=== PATIENT | female | born 1980 | race Caucasian/White ===

== ENCOUNTER 2018-01-13 10:34 | Emergency (ER) | payer OTHER ==
[2018-01-13] MEDS ORDERED: methylPREDNISolone SOD SUCCI 125 MG/2 ML VIAL IM ONE (11:41)
[2018-01-13] MEDS ORDERED: KETOROLAC 60 MG/2 ML VIAL IM STA (11:41)
--- NOTE | 2018-01-13 11:46 | ED ---
General Adult HPI - General Chief complaint: Extremity Injury, Lower Stated complaint: Hand pain Time Seen by Provider: 01/13/18 11:25 Source: patient, RN notes reviewed Mode of arrival: ambulatory Limitations: no limitations - History of Present Illness Initial comments: This is a 37-year-old female who states she has carpal tunnel syndrome more so on the right side than the left side from working at [employer] for a half years. She states over last 4 or 5 days she's had increased pain this at times gets as severe as 10/10 currently is 8/10 she states it goes into her wrist and fingers and doesn't ascend up to her elbow area. She denies any other complaints no chest pain shortness of breath loss of function to her upper or lower extremities just the pain with movement. She denies any recent trauma she states she is a nonsmoker. She states she's tried Tylenol and Motrin at home without relief she has not seen a hand surgeon. No other complaints - Related Data Previous Rx's Medication Instructions Recorded Ketorolac [Toradol] 10 mg PO Q6HR #20 tab 01/13/18 predniSONE 20 mg PO BID #10 tab 01/13/18 Allergies Allergy/AdvReac Type Severity Reaction Status Date / Time adhesive tape AdvReac Rash/Hives Verified 01/13/18 11:18 milk AdvReac Abdominal Verified 01/13/18 11:18 Pain Review of Systems ROS Statement: Those systems with pertinent positive or pertinent negative responses have been documented in the HPI. ROS Other: All systems not noted in ROS Statement are negative. Past Medical History Past Medical History: Seizure Disorder Additional Past Medical History / Comment(s): Anxiety, asthma, illicit drug use , pyelonephritis. History of Any Multi-Drug Resistant Organisms: MRSA Date of last positivie culture/infection: 10/16/16 MDRO Source:: THIGH Past Surgical History: No Surgical Hx Reported Additional Past Surgical History / Comment(s): [place] teeth extraction Past Anesthesia/Blood Transfusion Reactions: No Reported Reaction Past Psychological History: Anxiety, Depression Smoking Status: Never smoker Past Alcohol Use History: None Reported Past Drug Use History: Cocaine, Marijuana - Past Family History Father History Unknown: Yes Family Medical History: No Reported History General Exam - General Exam Comments Initial Comments: This is a well-developed well-nourished awake alert oriented 3 female Limitations: no limitations General appearance: alert, anxious Head exam: Present: atraumatic, normocephalic, normal inspection Eye exam: Present: normal appearance, PERRL, EOMI. Absent: scleral icterus, conjunctival injection, periorbital swelling Neck exam: Present: normal inspection. Absent: tenderness, meningismus, lymphadenopathy Respiratory exam: Present: normal lung sounds bilaterally. Absent: respiratory distress, wheezes, rales, rhonchi, stridor Cardiovascular Exam: Present: regular rate, normal rhythm, normal heart sounds. Absent: systolic murmur, diastolic murmur, rubs, gallop, clicks Extremities exam: Present: normal inspection, full ROM, tenderness, normal capillary refill, other (Some tenderness palpation of the median nerves to percussion bilaterally pulses are equal with respect to the radial pulses bilaterally. No tenderness palpation of the triceps biceps or forearm bilaterally integrity engineer strength is equal bilaterally.) Back exam: Present: full ROM Psychiatric exam: Present: anxious Skin exam: Present: warm, dry, intact, normal color. Absent: rash Course Vital Signs 01/13/18 11:04 Temperature 97.8 F Pulse Rate 81 Respiratory 18 Rate Blood Pressure 100/65 O2 Sat by Pulse 98 Oximetry Medical Decision Making - Medical Decision Making The presentation is consistent with an exacerbation of her carpal tunnel syndrome. She will follow-up with her doctor for further treatment or referral. Disposition Clinical Impression: Carpal tunnel syndrome on both sides Disposition: HOME SELF-CARE Condition: Good Instructions: Paresthesia (ED), Arthralgia (ED) Prescriptions: Ketorolac [Toradol] 10 mg PO Q6HR #20 tab predniSONE 20 mg PO BID #10 tab Referrals: Ced Pulido MD [Primary Care Provider] - 1-2 days
[2018-01-13 12:24] VITALS: BP 110/67; PULSE 64; RESP 20; TEMP 98.3
== END 2018-01-13 12:27 | disposition home or self-care (01) ==
LOC: EC 10:34
DX: G56.03 Carpal tunnel syndrome, bilateral upper limbs (principal); Z86.14 Personal history of Methicillin resistant Staphylococcus aureus infection; Z91.011 Allergy to milk products; Z91.048 Other nonmedicinal substance allergy status
CPT/HCPCS: 99283; 96372 ×2; J2930; J1885

== ENCOUNTER 2021-09-07 12:48 | Inpatient (IN) | payer OTHER ==
[2021-09-07] MEDS ORDERED: LACTATED RINGERS 1,000 ML IV ONE (13:11)
[2021-09-07] MEDS ORDERED: CITRIC ACID-SODIUM CITRATE 15 ML CUP PO ONE (13:11)
[2021-09-07] MEDS ORDERED: LACTATED RINGERS 1,000 ML IV SCH (13:15)
[2021-09-07 13:28] LABS: Basophils % (A) 0 %; Eosinophils # (A) 0.1 k/uL (0-0.7); Eosinophils % (A) 1 %; HCT 44.2 % (34.0-46.0); HGB 14.5 gm/dL (11.4-16.0); Lymphocytes # (A) 1.1 k/uL (1.0-4.8); Lymphocytes % (A) 6 %; MCH 31.8 pg (25.0-35.0); MCHC 32.8 g/dL (31.0-37.0); MCV 96.9 fL (80.0-100.0); Monocytes # (A) 0.4 k/uL (0-1.0); Monocytes % (A) 3 %; Neutrophils # (A) 14.9 k/uL (1.3-7.7); Neutrophils % (A) 90 %; Platelet Count 249 k/uL (150-450); RBC 4.56 m/uL (3.80-5.40); RDW 13.4 % (11.5-15.5); WBC 16.7 k/uL (3.8-10.6)
[2021-09-07] MEDS ORDERED: KETOROLAC 15 MG/ML 1 ML VIAL ONE (13:41)
[2021-09-07] MEDS ORDERED: HYDROmorphone (PF) 10 MG/ML VIAL ONE (13:41)
[2021-09-07] MEDS ORDERED: DEXAMETHASONE SOD PHOSPHATE 4 MG/ML 1 ML VIAL ONE (13:41)
[2021-09-07] MEDS ORDERED: ePHEDrine SULFATE/0.9% NACL/PF 50 MG/5 ML SYRINGE IV ONE (13:41)
[2021-09-07] MEDS ORDERED: SUCCINYLCHOLINE CHLORIDE VIAL 200 MG/10 ML VIAL IV ONE (13:41)
[2021-09-07] MEDS ORDERED: ONDANSETRON 4 MG/2 ML VIAL ONE (13:41)
[2021-09-07] MEDS ORDERED: PROPOFOL 10 MG/ML 20 ML VIAL IV ONE (13:41)
[2021-09-07] MEDS ORDERED: fentaNYL (PF) 50 MCG/ML 2 ML AMP ONE (13:41)
[2021-09-07 14:00] LABS: Amorphous Sediment,Urine Occasional /hpf; Appearance,Urine Cloudy (Clear); Bacteria,Urine Rare /hpf; Bilirubin,Urine Negative (Negative); Blood,Urine Moderate (Negative); Color,Urine Yellow; Glucose,Urine (UA) Negative (Negative); Ketones,Urine 3+ (Negative); Leukocyte Esterase,Urine Trace (Negative); Mucus,Urine Occasional /hpf; Nitrite,Urine Negative (Negative); Protein,Urine 1+ (Negative); RBC,Urine 16 /hpf (0-5); Specific Gravity,Urine 1.018 (1.001-1.035); Squamous Epithelial Cell,Urine 12 /hpf (0-4); Urobilinogen,Urine <2.0 mg/dL (<2.0); WBC,Urine 4 /hpf (0-5)
[2021-09-07] MEDS ORDERED: ZOLPIDEM 5 MG TAB PO PRN (14:40)
[2021-09-07] MEDS ORDERED: diphenhydrAMINE 25 MG CAP PO PRN (14:40)
[2021-09-07] MEDS ORDERED: NALOXONE 0.4 MG/ML 1 ML VIAL IV PRN (14:40)
[2021-09-07] MEDS ORDERED: diphenhydrAMINE 50 MG/ML 1 ML VIAL IVP PRN ×2 (14:40)
[2021-09-07] MEDS ORDERED: SIMETHICONE 80 MG CHEWABLE PO PRN (14:40)
[2021-09-07] MEDS ORDERED: ONDANSETRON 4 MG/2 ML VIAL IVP PRN (14:40)
[2021-09-07] MEDS ORDERED: METOCLOPRAMIDE 5 MG/ML 2 ML VIAL IVP PRN (14:40)
[2021-09-07] MEDS ORDERED: OXYTOCIN 30 UNITS/500 ML NS 30 UNIT in SALINE 1 500ML.BAG IV SCH (14:45)
[2021-09-07 14:48] LABS: Amphetamine Screen,Urine Not Detected (NotDetected); Barbiturate Screen,Urine Not Detected (NotDetected); Benzodiazepines Screen,Urine Not Detected (NotDetected); Cocaine Screen,Urine Detected (NotDetected); Methadone Screen, Urine Not Detected (NotDetected); Opiate Screen,Urine Not Detected (NotDetected); Oxycodone Screen, Urine Not Detected (NotDetected); Phencyclidine Screen,Urine Not Detected (NotDetected); Tricyclic Antidepressant,Urine Not Detected (NotDetected); Urn Cannabinoid Scrn Detected (NotDetected)
--- NOTE | 2021-09-07 14:49 | P.HPOB ---
History of Present Illness H&P Date: 09/07/21 Chief Complaint: Labor This is a 41-year-old 2 para 1 woman who presents on in spontaneous active labor. She states she has a due date of 09/26/2021 making her approx imately 37-2/7 weeks' gestation. She gives a history of a previous low transverse section. When she arrived in labor and delivery she has actively mary is inconsolable and in significant pain. Ripening and thrashing in the bed. Initial evaluation by the RN she was her cervix to 3 to be 4 cm dilated with intact membranes. We will she is being admitted and IV started she has spontaneous rupture of membranes. Upon my initial evaluation she is 8 cm dilated and 100% effaced. She is counseled regarding vaginal after section versus repeat . Patient adamantly refuses trial of labor and insists upon section. Secondary to the unknown nature of her past medical history is wisest to proceed and expeditious fashion to primary low transverse section. Anesthesia is notified. heart tones are category 1. She is mary every 1-2 minutes spontaneously. Past Medical History Past Medical History: Seizure Disorder Additional Past Medical History / Comment(s): Anxiety, asthma, illicit drug use, pyelonephritis. History of Any Multi-Drug Resistant Organisms: MRSA Date of last positivie culture/infection: 10/16/16 MDRO Source:: THIGH Past Surgical History: No Surgical Hx Reported Additional Past Surgical History / Comment(s): [place] teeth extraction Past Anesthesia/Blood Transfusion Reactions: No Reported Reaction Smoking Status: Smoker, current status unknown - Past Family History Father History Unknown: Yes Family Medical History: No Reported History Medications and Allergies Home Medications Medication Instructions Recorded Confirmed Type Cephalexin [Keflex] 500 mg PO Q4HR 09/07/21 09/07/21 History Pnv No.95/Ferrous Fum/Folic AC 1 tab PO DAILY 09/07/21 09/07/21 History [ Multivitamin Tablet] Allergies Allergy/AdvReac Type Severity Reaction Status Date / Time adhesive tape AdvReac Rash/Hives Verified 09/07/21 13:09 milk AdvReac Abdominal Verified 09/07/21 13:09 Pain Exam Intake and Output 09/06/21 09/07/21 09/07/21 22:59 06:59 14:59 Other: Weight 67.132 kg Limited physical exam is performed. This is a visibly gravid actively laboring and inconsolable female who appears her stated age. The abdomen is very firm and gravid with fundal height that appears smaller than stated gestational age. Pelvic examination she is 8+ centimeters dilated and 100% effaced vertex in the 0 station. Patient does not tolerate exam well. Results Result Diagrams: 09/07/21 13:15 Abnormal Lab Results - Last 24 Hours (Table) 09/07/21 Range/Units 13:15 WBC 16.7 H (3.8-10.6) k/uL Neutrophils # 14.9 H (1.3-7.7) k/uL Assessment and Plan (1) Active labor at term Current Visit: No Status: Acute Code(s): MDB8903 - SNOMED Code(s): 21548053 (2) Advanced maternal age (AMA) in Current Visit: Yes Status: Acute Code(s): JSZ8813 - SNOMED Code(s): 539963524 (3) Spontaneous onset of labor Current Visit: Yes Status: Acute Code(s): QQW2437 - SNOMED Code(s): 56745961 (4) Spontaneous rupture of membranes Current Visit: Yes Status: Acute Code(s): GBJ8532 - SNOMED Code(s): 259409078 (5) History of Current Visit: Yes Status: Acute Code(s): Z98.891 - HISTORY OF UTERINE SCAR FROM PREVIOUS SURGERY SNOMED Code(s): 769915917 (6) Insufficient care Current Visit: Yes Status: Acute Code(s): O09.30 - SUPRVSN OF PREG W INSUFFICIENT ANTENAT CARE, UNSP TRIMESTER SNOMED Code(s): 7310575160645 Plan: Anesthesia team and or notified. She be taken for emergent repeat low transverse section. Labs are pending. Patient's counseled regarding risks of include bleeding, infection, transfusion, injury to the infan t and or maternal internal structures. Consent is obtained.
--- NOTE | 2021-09-07 14:56 | P.OP ---
Date of Procedure: 09/07/21 Preoperative Diagnosis: Intrauterine at 30 and 60 2/7 weeks' gestation Insufficient care History of previous low transverse section Advanced active labor Advanced maternal age Possible recent maternal drug abuse Postoperative Diagnosis: Same Procedure(s) Performed: Repeat low transverse section Anesthesia: JONY Surgeon: Jamilah Mccormack Litigation Paralegal #1: Melia Frank Estimated Blood Loss (ml): 250 IV fluids (ml): 1,000 Urine output (ml): 100 Pathology: other (Placenta) Condition: stable Disposition: floor Indications for Procedure: History of previous low transverse section in advanced active labor. Operative Findings: Male infant in the vertex presentation with Apgars of 8 at 1 minute and 8 at 5 minutes weighing 2700 g, 5 lbs. 12 oz. Intact, three-vessel cord placenta. Clear amniotic fluid. Normal-appearing bilateral fallopian tubes and ovaries. Description of Procedure: After the patient was seen and assessed in the operating room and consent was obtained, she was taken to the operating room where general anesthetic was administered without incident. Appropriate timeout procedure had been undertaken. After anesthetic was adequate a low transverse skin incision was made following the pre-existing scar. This was carried down to the underlying fascia sharply. Fascia was incised in the midline and extended bilaterally with the Barr scissors. The inferior and superior aspect the fascial incision were elevated and the underlying rectus muscles dissected off sharply. Rectus muscles were bluntly in the midline and the peritoneum was entered bluntly. Peritoneal incision was extended bilaterally bluntly. Bladder blade was placed. Vesicouterine peritoneum was identified, tented up and entered sharply. The bladder flap was created sharply. Low transverse uterine incision was then made and extended bilaterally bluntly. Clear fluid was noted. The 's head was delivered out of the incision from the occiput anterior position. Nose and mouth were bulb suctioned. The resting. Delivered onto the field. The cord was clamped and cut and the infant was taken to the warmer. Cord blood was obtained as well as a segment for cord blood gases. The placenta was then delivered intact without difficulty. The uterus was exteriorized and cleared of all clot and debris. Uterine incision was delineated with Marcus's and closed in a running locked fashion with 0 Vicryl suture followed by second imbricating layer of the same. Additional [id number] suture was placed for hemostasis to the right of the midline and the incision. The gutters were cleared of all clot and debris and the uterus was returned to the abdomen. The incision was reinspected and noted to be hemostatic. The fascial edges rectus muscles and peritoneal edges were inspected and Bovie electrocautery was utilized were necessary for hemostasis. The fascia was then closed in a running fashion with 0 Vicryl suture. The subcuticular tissues reapproximated with 3-0 chromic suture and the skin was then closed using linnette. All counts reported to me as correct by the operating room staff and the patient was awoken from anesthetic without incident and transported to recovery.
[2021-09-07] MEDS: ACETAMINOPHEN IV (For NPO) 1,000 MG in EMPTY BAG 1 BAG IVPB SCH ×2 (15:05→23:20)
[2021-09-07] MEDS: LACTATED RINGERS 1,000 ML IV SCH ×2 (15:48→23:11)
[2021-09-07] MEDS: HYDROmorphone 1 MG/ML 1 ML SYRINGE IVP PRN ×2 (16:04→20:24)
[2021-09-07] MEDS: diphenhydrAMINE 50 MG CAP PO PRN (18:33)
[2021-09-07] MEDS: SENNOSIDES-DOCUSATE SODIUM 1 EACH TAB PO SCH (18:33)
[2021-09-07] MEDS: IBUPROFEN IV 800 MG in SODIUM CHLORIDE 0.9% 250 ML IV SCH (19:10)
[2021-09-07] MEDS: IBUPROFEN 600 MG TAB PO SCH (20:03)
[2021-09-07] MEDS ORDERED: ACETAMINOPHEN IV (For NPO) 1,000 MG in EMPTY BAG 1 BAG IVPB SCH (23:30)
[2021-09-08] MEDS: IBUPROFEN 600 MG TAB PO SCH ×4 (02:02→19:50)
[2021-09-08] MEDS: IBUPROFEN IV 800 MG in SODIUM CHLORIDE 0.9% 250 ML IV SCH (02:39)
[2021-09-08 04:08] LABS: Hepatitis B Surface Antigen Nonreactive (Nonreactive)
[2021-09-08] MEDS: ACETAMINOPHEN TAB 500 MG TAB PO SCH (05:16)
--- NOTE | 2021-09-08 05:56 | P.PNOBGPC ---
Subjective - Subjective Principal diagnosis: Postop day 1 Interval history: Comfortable overnight. IV access loss and patient declined replacement. This tolerating clear diet and oral pain medications well. Patient reports: Reports appetite normal, Reports voiding normally, Reports pain well controlled, Reports ambulating normally, Denies dizzy ambulation, Denies nauseated [place]: doing well, in NICU Objective - Vital Signs Latest vital signs: Vital Signs Temp Pulse Resp BP Pulse Ox 09/08/21 04:30 98.3 F 74 14 113/69 97 09/07/21 23:55 98.4 F 61 16 116/66 98 09/07/21 20:00 97.8 F 99 16 115/61 97 09/07/21 16:30 98.8 F 80 16 98/70 09/07/21 16:00 61 16 103/69 100 09/07/21 15:30 99 16 108/63 99 09/07/21 15:15 52 L 16 110/72 100 09/07/21 15:00 66 16 111/63 09/07/21 14:45 68 16 117/57 98 09/07/21 14:30 96.8 F L 70 16 125/74 99 09/07/21 13:21 96.6 F L 56 L 16 138/88 09/07/21 13:16 96.6 F L 56 L 18 138/88 Intake and Output 09/07/21 09/07/21 09/08/21 14:59 22:59 06:59 Output Total 1300 550 Balance -1300 -550 Output: Urine 1100 550 Uretheral (Johnson) 175 Estimated Blood Loss 200 Other: # Voids 1 Weight 67.132 kg - Exam Extremities: Present: normal Abdomen: Present: normal appearance, soft, distention (Mild), tenderness Incision: Present: normal, dry, intact, dressed Uterus: Present: normal, firm - Labs Labs: Abnormal Lab Results - Last 24 Hours (Table) 09/07/21 09/07/21 09/07/21 Range/Units 13:15 13:15 13:15 WBC 16.7 H (3.8-10.6) k/uL Neutrophils # 14.9 H (1.3-7.7) k/uL Urine Appearance Cloudy H (Clear) Urine Protein 1+ H (Negative) Urine Ketones 3+ H (Negative) Urine Blood Moderate H (Negative) Ur Leukocyte Esterase Trace H (Negative) Urine RBC 16 H (0-5) /hpf Ur Squamous Epith Cells 12 H (0-4) /hpf Amorphous Sediment Occasional H (None) /hpf Urine Bacteria Rare H (None) /hpf Urine Mucus Occasional H (None) /hpf Urine Cocaine Screen Detected H (NotDetected) U Marijuana (THC) Screen Detected H (NotDetected) Rubella IgG Antibody 123.00 H (0.00-10.00) IU/mL Assessment and Plan (1) Active labor at term Current Visit: No Status: Acute Code(s): GYA3952 - SNOMED Code(s): 44729081 (2) Advanced maternal age (AMA) in Current Visit: Yes Status: Acute Code(s): VFR2072 - SNOMED Code(s): 053731063 (3) Spontaneous onset of labor Current Visit: Yes Status: Acute Code(s): EAH7289 - SNOMED Code(s): 844 57682 (4) Spontaneous rupture of membranes Current Visit: Yes Status: Acute Code(s): MDL7303 - SNOMED Code(s): 944238097 (5) History of Current Visit: Yes Status: Acute Code(s): Z98.891 - HISTORY OF UTERINE SCAR FROM PREVIOUS SURGERY SNOMED Code(s): 063365107 (6) Insufficient care Current Visit: Yes Status: Acute Code(s): O09.30 - SUPRVSN OF PREG W INSUFFICIENT ANTENAT CARE, UNSP TRIMESTER SNOMED Code(s): 4774897050596 Plan: Postop day 1 status post repeat low transverse section secondary to advanced active labor. She is recovering well. Urine tox screen returned positive for cocaine and marijuana. Infant is in the special care nursery. environmental services tech consult has been arranged. Advance diet this morning and remove dressing at 24 hours, shower. She was on antibiotics for a urinary tract infection and we will continue Keflex at this time. She did receive 2 g of Ancef IV 2 before IV access was lost.
[2021-09-08 08:33] LABS: Basophils % (A) 0 %; Eosinophils % (A) 0 %; HCT 34.3 % (34.0-46.0); HGB 11.6 gm/dL (11.4-16.0); Lymphocytes # (A) 1.9 k/uL (1.0-4.8); Lymphocytes % (A) 11 %; MCHC 33.8 g/dL (31.0-37.0); MCV 97.5 fL (80.0-100.0); Mean Platelet Volume 8.4; Monocytes # (A) 0.8 k/uL (0-1.0); Monocytes % (A) 4 %; Neutrophils # (A) 14.3 k/uL (1.3-7.7); Neutrophils % (A) 83 %; Platelet Count 215 k/uL (150-450); RBC 3.51 m/uL (3.80-5.40); RDW 13.5 % (11.5-15.5); WBC 17.1 k/uL (3.8-10.6)
[2021-09-08] MEDS: CEPHALEXIN 500 MG CAP PO SCH ×2 (08:34→20:44)
[2021-09-08] MEDS: SENNOSIDES-DOCUSATE SODIUM 1 EACH TAB PO SCH ×2 (08:35→19:50)
[2021-09-08] MEDS: HYDROcodone/APAP 5-325MG 1 EACH TAB PO PRN ×3 (10:32→21:59)
[2021-09-08 10:34] LABS: HIV 2 AB Non-Reactive (Non-Reactive); HIV AB P24 Non-Reactive (Non-Reactive); HIV P24 AG Non-Reactive (Non-Reactive)
[2021-09-08] MEDS: diphenhydrAMINE 50 MG CAP PO PRN ×2 (14:44→19:50)
[2021-09-08] MEDS ORDERED: LORazepam 1 MG TAB PO STA (19:41)
[2021-09-08] MEDS ORDERED: THIAMINE 100 MG/ML 2 ML VIAL IM STA (20:00)
[2021-09-08] MEDS ORDERED: LORazepam 2 MG/ML INJ IV PRN ×3 (20:00)
[2021-09-09] MEDS: HYDROcodone/APAP 5-325MG 1 EACH TAB PO PRN ×3 (07:52→20:47)
[2021-09-09] MEDS: SENNOSIDES-DOCUSATE SODIUM 1 EACH TAB PO SCH ×2 (07:58→20:44)
[2021-09-09] MEDS: CEPHALEXIN 500 MG CAP PO SCH ×2 (07:58→20:44)
[2021-09-09] MEDS: ACETAMINOPHEN TAB 500 MG TAB PO SCH ×4 (08:33→18:29)
[2021-09-09] MEDS: THIAMINE 100 MG TAB PO SCH ×2 (08:35→18:31)
[2021-09-09] MEDS: IBUPROFEN 600 MG TAB PO SCH ×3 (10:10→15:58)
[2021-09-09] MEDS ORDERED: LORazepam 0.5 MG TAB PO PRN (10:18)
--- NOTE | 2021-09-09 11:25 | P.PNOBGPC ---
Subjective - Subjective Interval history: The patient did begin to experience moderate symptoms of probable withdrawal from crack cocaine last evening which has been managed well with Ativan. Patient reports: Reports appetite normal, Reports voiding normally, Reports pain well controlled, Reports ambulating normally : doing well, in NICU (Being monitored for withdrawal symptoms.) Objective - Vital Signs Latest vital signs: Vital Signs Temp Pulse Resp BP Pulse Ox 09/09/21 08:00 98.1 F 66 18 122/76 97 09/08/21 20:00 98.5 F 71 16 119/73 09/08/21 14:27 98.1 F 73 18 108/65 96 09/08/21 12:00 98.7 F 61 18 112/74 99 Intake and Output 09/08/21 09/09/21 09/09/21 22:59 06:59 14:59 Intake Total 200 Balance 200 Intake: Oral 200 Other: # Voids 1 2 1 - Exam Extremities: Present: normal Abdomen: Present: normal appearance, soft. Absent: distention, tenderness Incision: Present: normal, dry, intact Uterus: Present: normal, firm (The uterine fundus is tonic inappropriately tender just below the umbilicus.) Assessment and Plan (1) Cocaine abuse Current Visit: No Status: Acute Code(s): F14.10 - COCAINE ABUSE, UNCOMPLICATED SNOMED Code(s): 47865411 Plan: The patient has been experiencing withdrawal symptoms from cocaine. My initial management with Ativan appears to be effective and consultation with internal medicine has agreed with that plan. She no longer has an IV in place and internal medicine has ordered IV Ativan as needed. I have changed this to oral Ativan 1 mg every 6 hours as needed. The patient did well with a single dose of Ativan last evening until this morning. She has requested to remain in the hospital longer secondary to ongoing incisional pain. I strongly encouraged her to evaluate the hallways routinely. She is otherwise performing all activities of daily living.
--- NOTE | 2021-09-09 13:20 | P.CONS ---
History of Present Illness - Reason for Consult Consult date: 09/09/21 - Chief Complaint Cocaine withdrawal - History of Present Illness 41-year-old female patient was admitted to the hospital with spontaneous labor; patient was found to be actively mary upon presentation; patient's was given option for repeat versus vaginal ; patient chose for a section and underwent surgery on 09/08/2021 Patient urine toxicology came back positive for cocaine and marijuana; postoperatively patient was very restless with concern for possible cocaine withdrawal; at the bedside patient reports he's been using cocaine for the past 10-15 years; patient further reports that her physicians are aware of her cocaine use At the time of evaluation patient is resting in bed appears calm and not withdrawing Labs completed yesterday revealed an elevated white blood count of 17.1; UA is positive and patient has been placed appropriately on IV antibiotics Review of Systems REVIEW OF SYSTEMS: CONSTITUTIONAL: Complains of pain at surgical site. HEENT: No recent visual problems or hearing problems. Denied any sore throat. CARDIOVASCULAR: No chest pain, orthopnea, PND, no palpitations, no syncope. PULMONARY: No shortness of breath, no cough, no hemoptysis. GASTROINTESTINAL: No diarrhea, no nausea, no vomiting, no abdominal pain. NEUROLOGICAL: No headaches, no weakness, no numbness. HEMATOLOGICAL: Denies any bleeding or petechiae. GENITOURINARY: Denies any burning micturition, frequency, or urgency. MUSCULOSKELETAL/RHEUMATOLOGICAL: Denies any joint pain, swelling, or any muscle pain. ENDOCRINE: Denies any polyuria or polydipsia. The rest of the 14-point review of systems is negative. Past Medical History Past Medical History: Seizure Disorder Additional Past Medical History / Comment(s): Anxiety, asthma, illicit drug use, pyelonephritis. History of Any Multi-Drug Resistant Organisms: MRSA Year Discovered:: 10/16/16 MDRO Source:: THIGH Past Surgical History: No Surgical Hx Reported Additional Past Surgical History / Comment(s): [place] teeth extraction Past Anesthesia/Blood Transfusion Reactions: No Reported Reaction Smoking Status: Smoker, current status unknown - Past Family History Father History Unknown: Yes Family Medical History: No Reported History Mother Additional Family Medical History / Comment(s): Stroke Medications and Allergies Home Medications Medication Instructions Recorded Confirmed Type Cephalexin [Keflex] 500 mg PO Q4HR 09/07/21 09/07/21 History Pnv No.95/Ferrous Fum/Folic AC 1 tab PO DAILY 09/07/21 09/07/21 History [ Multivitamin Tablet] Allergies Allergy/AdvReac Type Severity Reaction Status Date / Time adhesive tape AdvReac Rash/Hives Verified 09/07/21 13:09 milk AdvReac Abdominal Verified 09/07/21 13:09 Pain Physical Exam Vitals: Vital Signs Temp Pulse Resp BP Pulse Ox 09/09/21 08:00 98.1 F 66 18 122/76 97 09/08/21 20:00 98.5 F 71 16 119/73 09/08/21 14:27 98.1 F 73 18 108/65 96 09/08/21 12:00 98.7 F 61 18 112/74 99 Intake and Output 09/08/21 09/09/21 09/09/21 22:59 06:59 14:59 Intake Total 200 Balance 200 Intake: Oral 200 Other: # Voids 1 2 1 General appearance: Present: average body habitus, cooperative, no acute distress EENT; anicteric sclerae, EOMI, PERRLA, normal appearance Neck: Present: normal ROM. Absent: lymphadenopathy, rigidity, thyromegaly Carotids: negative: bruit present Respiratory: bilateral: CTA, negative: rales, rhonchi, wheezing Cardiovascular; regular rate and rhythm; S1, S2 is normal Gastrointestinal: Present: normal bowel sounds, soft. Absent: distended, organomegaly, tenderness Genitourinary Comment(s): deferred Neurologic: Present: CNII-XII intact. Absent: focal deficits Musculoskeletal: Present: gait normal, strength equal bilaterally Psychiatric: Present: A&O x's 3, appropriate affect, intact judgment & insight Results CBC & Chem 7: 09/08/21 06:38 Assessment and Plan Assessment: 1. Chronic substance use; patient reports using marijuana and cocaine for se veral years - Patient is placed on IV Ativan per protocol for withdrawal symptoms; continue with supportive care - We will monitor patient closely with plans to add possible antihypertensive medications to be used when necessary if blood pressure trends up - Patient advised aggressive oral fluid intake; agree with social work consult; patient counseled on need for quitting 2. Anxiety; patient reports taking BuSpar at home; we will continue with Ativan as needed with plans to prescribe BuSpar once Ativan is discontinued 3. Insomnia/sleep disorder; recommend continuing Ambien 5 mg by mouth daily at bedtime when necessary 4. UTI; urine culture is pending; patient is currently on Keflex 500 mg by mouth twice a day DVT prophylaxis; per primary team discretion CODE STATUS; full code
[2021-09-09] MEDS: diphenhydrAMINE 50 MG CAP PO PRN (17:07)
[2021-09-09] MEDS: LORazepam 1 MG TAB PO PRN (20:44)
[2021-09-10] MEDS: ACETAMINOPHEN TAB 500 MG TAB PO SCH ×2 (00:39→17:07)
[2021-09-10 05:46] LABS: Basophils % (A) 0 %; Eosinophils # (A) 0.1 k/uL (0-0.7); Eosinophils % (A) 1 %; HCT 36.9 % (34.0-46.0); HGB 12.2 gm/dL (11.4-16.0); Lymphocytes # (A) 1.9 k/uL (1.0-4.8); Lymphocytes % (A) 20 %; MCH 32.2 pg (25.0-35.0); MCV 97.7 fL (80.0-100.0); Mean Platelet Volume 8.4; Monocytes # (A) 0.5 k/uL (0-1.0); Monocytes % (A) 5 %; Neutrophils # (A) 6.8 k/uL (1.3-7.7); Neutrophils % (A) 72 %; Platelet Count 221 k/uL (150-450); RBC 3.78 m/uL (3.80-5.40); RDW 13.5 % (11.5-15.5); WBC 9.5 k/uL (3.8-10.6)
[2021-09-10 06:04] LABS: African American GFR (CKD) >90 (>60 ml/min/1.73 sqM); Anion Gap 1 mmol/L; Blood Urea Nitrogen 9 mg/dL (7-17); Calcium 8.5 mg/dL (8.4-10.2); Carbon Dioxide 27 mmol/L (22-30); Chloride 106 mmol/L (98-107); Glucose 86 mg/dL (74-99); Non-African American GFR(CKD) >90 (>60 ml/min/1.73 sqM); Sodium 134 mmol/L (137-145)
[2021-09-10] MEDS: IBUPROFEN 600 MG TAB PO SCH ×4 (07:54→19:51)
[2021-09-10] MEDS: CEPHALEXIN 500 MG CAP PO SCH ×2 (07:55→21:40)
[2021-09-10] MEDS: SENNOSIDES-DOCUSATE SODIUM 1 EACH TAB PO SCH ×2 (07:55→19:52)
[2021-09-10] MEDS: THIAMINE 100 MG TAB PO SCH ×2 (07:55→18:19)
[2021-09-10] MEDS: HYDROcodone/APAP 5-325MG 1 EACH TAB PO PRN ×2 (10:12→17:06)
--- NOTE | 2021-09-10 10:37 | P.PNOBGPC ---
Subjective - Subjective Interval history: Patient reports having significantly less agitation, well controlled with Ati van. Patient reports: Reports appetite normal, Reports voiding normally, Reports pain well controlled, Reports ambulating normally : doing well, in NICU Objective - Vital Signs Latest vital signs: Vital Signs Temp Pulse Resp BP Pulse Ox 09/10/21 07:53 98.5 F 73 16 125/86 98 09/10/21 00:00 98.3 F 70 16 116/74 99 09/09/21 16:00 97.7 F 75 18 115/75 99 Intake and Output 09/09/21 09/10/21 09/10/21 22:59 06:59 14:59 Intake Total 300 600 Balance 300 600 Intake: Oral 300 600 Other: # Voids 1 1 1 - Exam Extremities: Present: normal Abdomen: Present: normal appearance, soft. Absent: distention, tenderness Incision: Present: normal, dry, intact Uterus: Present: normal, firm (The uterine fundus as tonic and appropriate tender below the umbilicus.) - Labs Labs: Abnormal Lab Results - Last 24 Hours (Table) 09/10/21 09/10/21 Range/Units 05:23 05:23 RBC 3.78 L (3.80-5.40) m/uL Sodium 134 L (137-145) mmol/L Creatinine 0.51 L (0.52-1.04) mg/dL Assessment and Plan (1) Cocaine abuse Current Visit: No Status: Acute Code(s): F14.10 - COCAINE ABUSE, UNCOMPLICATED SNOMED Code(s): 16267992 (2) S/P section Current Visit: No Status: Acute Code(s): Z98.89 - OTHER SPECIFIED POSTPROCEDURAL STATES * DO NOT USE * SNOMED Code(s): 687036913 Plan: Patient requesting to remain in the hospital for 1 more day. She will be discharged home tomorrow pending no complications. I again have recommended routine ambulation in the hallways. I appreciate the note from internal medicine. Any further discharge recommendations aside from discontinuation of Ativan and resuming the patient's BuSpar would be appreciated.
[2021-09-10] MEDS: LORazepam 1 MG TAB PO PRN ×2 (16:16→21:39)
--- NOTE | 2021-09-10 20:30 | P.PN ---
Subjective Progress Note Date: 09/10/21 41-year-old female patient was admitted to the hospital with spontaneous labor; patient was found to be actively mary upon presentation; patient's was given option for repeat versus vaginal ; patient chose for a section and underwent surgery on 09/08/2021 Patient urine toxicology came back positive for cocaine and marijuana; postoperatively patient was very restless with concern for possible cocaine withdrawal; at the bedside patient reports he's been using cocaine for the past 10-15 years; patient further reports that her physicians are aware of her cocaine use At the time of evaluation patient is resting in bed appears calm and not withdrawing Labs completed yesterday revealed an elevated white blood count of 17.1; UA is positive and patient has been placed appropriately on IV antibiotics Objective - Vital Signs Vital signs: Vital Signs Temp 98.3 F 09/10/21 16:00 Pulse 86 09/10/21 16:00 Resp 18 09/10/21 16:00 BP 127/73 09/10/21 16:00 Pulse Ox 100 09/10/21 16:00 Intake & Output 09/10/21 09/10/21 09/11/21 06:59 18:59 06:59 Intake Total 300 1200 Balance 300 1200 Intake: Oral 300 1200 Other: # Voids 1 2 - Exam PHYSICAL EXAMINATION: GENERAL: The patient is alert and oriented x3, not in any acute distress. Well developed, well nourished. HEENT: Pupils are round and equally reacting to light. EOMI. No scleral icterus. No conjunctival pallor. Normocephalic, atraumatic. No pharyngeal erythema. No thyromegaly. CARDIOVASCULAR: S1 and S2 present. No murmurs, rubs, or gallops. PULMONARY: Chest is clear to auscultation, no wheezing or crackles. ABDOMEN: Soft, nontender, nondistended, normoactive bowel sounds. No palpable organomegaly. MUSCULOSKELETAL: No joint swelling or deformity. EXTREMITIES: No cyanosis, clubbing, or pedal edema. NEUROLOGICAL: Gross neurological examination did not reveal any focal deficits. SKIN: No rashes. - Labs CBC & Chem 7: 09/10/21 05:23 09/10/21 05:23 Labs: Abnormal Lab Results - Last 24 Hours (Table) 09/10/21 09/10/21 Range/Units 05:23 05:23 RBC 3.78 L (3.80-5.40) m/uL Sodium 134 L (137-145) mmol/L Creatinine 0.51 L (0.52-1.04) mg/dL Assessment and Plan Assessment: 1. Chronic substance use; patient reports using marijuana and cocaine for several years - Patient is placed on IV Ativan per protocol for withdrawal symptoms; continue with supportive care - We will monitor patient closely with plans to add possible antihypertensive medications to be used when necessary if blood pressure trends up - Patient advised aggressive oral fluid intake; agree with social work consult; patient counseled on need for quitting 2. Anxiety; patient reports taking BuSpar at home; we will continue with Ativan as needed with plans to prescribe BuSpar once Ativan is discontinued 3. Insomnia/sleep disorder; recommend continuing Ambien 5 mg by mouth daily at bedtime when necessary 4. UTI; urine culture is pending; patient is currently on Keflex 500 mg by mouth twice a day DVT prophylaxis; per primary team discretion CODE STATUS; full code
[2021-09-11] MEDS: ACETAMINOPHEN TAB 500 MG TAB PO SCH ×3 (00:47→12:10)
[2021-09-11] MEDS: HYDROcodone/APAP 5-325MG 1 EACH TAB PO PRN ×3 (00:47→14:22)
[2021-09-11] MEDS: IBUPROFEN 600 MG TAB PO SCH ×2 (05:53→14:24)
[2021-09-11] MEDS: SENNOSIDES-DOCUSATE SODIUM 1 EACH TAB PO SCH (10:05)
[2021-09-11] MEDS: THIAMINE 100 MG TAB PO SCH (10:06)
[2021-09-11] MEDS: CEPHALEXIN 500 MG CAP PO SCH (10:06)
--- NOTE | 2021-09-11 12:43 | P.DS ---
Providers Date of admission: 09/07/21 13:12 Expected date of discharge: 09/11/21 Attending physician: Jamilah Mccormack Consults: 09/08/21 18:38 Consult Physician Routine Consulting Provider: [facility] Hospitalists Consult Reason/Comments: cocaine ,crack user consult for management.miriam hospitalist said on perf Do you want consulting provider notified?: Already Contacted Primary care physician: Stated None - Discharge Diagnosis(es) (1) Active labor at term Current Visit: No Status: Acute (2) Advanced maternal age (AMA) in Current Visit: Yes Status: Acute (3) Spontaneous onset of labor Current Visit: Yes Status: Acute (4) Spontaneous rupture of membranes Current Visit: Yes Status: Acute (5) History of Current Visit: Yes Status: Acute (6) Insufficient care Current Visit: Yes Status: Acute (7) Substance abuse Current Visit: Yes Status: Acute Hospital Course: This is a 41-year-old 2 now para 2 woman who presented at 37-2/7 weeks gestation in advanced active labor having not received care in this community. She is a history of a previous low transverse section and declined trial of labor. As she was admitted Brady active labor she was taken emergently for repeat low transverse section which was done under general anesthetic. Findings at the time of surgery were notable for a male in the vertex presentation with Apgars of 8 at 1 minute and 8 at 5 minutes weighing 5 lbs. 12 oz. Please see the operative report for details. Postoperatively she did have a urine tox screen came back positive for cocaine and marijuana. She did report a long-standing history greater than 10 years of cocaine use. Postoperative medicine consultation was obtained and appreciated for management of withdrawal symptoms. She was started on Ativan protocol as well as thiamine. She also was on postoperative antibiotics for history of urinary tract infection as well as setting of urgent section. She initially had an elevated white blood cell count however this on normalized by postoperative day #3. Currently on postoperative day #4 she reports that her pain is well-controlled. She is continuing to have some withdrawal symptoms and is concerned that when she is discharged from the hospital she will relapse and begin using cocaine again. I talked with her about options for rehabilitation but it sounds as though she has utilized some of the local rehabilitation facility is and she is unhappy with them. She has [facility] approximately 2 years ago and may be willing to see them again. CPS and social work has been involved with the patient thus far. I will look to them for recommendations for referral for outpatient rehab services. Today on examination the abdomen is soft and minimally distended and her i ncision appears well healing. Antwan are removed and Steri-Strips are placed. Wound care is reviewed with the patient as well as recommendations for follow-up in 1-2 weeks postoperatively in the office. She is counseled on signs of wound infection including redness and foul drainage. She is recommended no intercourse, nothing in the vagina for 6 weeks. She is interested in possible tubal ligation for long-term contraception and that can be discussed at her follow-up as well. Plan - Discharge Summary New Discharge Prescriptions: New Ibuprofen [Motrin] 600 mg PO Q6H #30 tab Acetaminophen Tab [Tylenol] 1,000 mg PO Q6H #30 tab Thiamine [Vitamin B-1] 100 mg PO BID-W/MEALS #60 tab Discontinued Cephalexin [Keflex] 500 mg PO Q4HR No Action Pnv No.95/Ferrous Fum/Folic AC [ Multivitamin Tablet] 1 tab PO DAILY Discharge Medication List Pnv No.95/Ferrous Fum/Folic AC [ Multivitamin Tablet] 1 tab PO DAILY 09/07/21 [History] Acetaminophen Tab [Tylenol] 1,000 mg PO Q6H #30 tab 09/11/21 [Rx] Ibuprofen [Motrin] 600 mg PO Q6H #30 tab 09/11/21 [Rx] Thiamine [Vitamin B-1] 100 mg PO BID-W/MEALS #60 tab 09/11/21 [Rx] Follow up Appointment(s)/Referral(s): Jamilah Mccormack MD [STAFF PHYSICIAN] - 2 Weeks Activity/Diet/Wound Care/Special Instructions: [facility] - P: [phone] [facility] ACCESS [phone] CALL FOR PRIOR AUTH TO SUBSTANCE ABUSE TREATMENT Follow-up in 2 weeks after surgery in the office, Dr Mccormack. Call the office with any concerning signs or symptoms including fever greater than 101, severe abdominal pain, heavy vaginal bleeding, signs of wound infection, increased swelling or redness of the lower extremities, signs of depression. No driving for 2 weeks after surgery. No heavy lifting or vigorous activity until reevaluated in the office. No intercourse for 6 weeks after delivery. Discharge/Stand Alone Forms: [facility], Outpatient Counseling Discharge Disposition: HOME SELF-CARE
[2021-09-11 16:56] VITALS: BP 115/76; PULSE 77; RESP 16; TEMP 97.5
== END 2021-09-11 15:35 | disposition home or self-care (01) | DRG 787 ==
LOC: FBPOP 12:48 → 4FBP 13:12
PROVIDERS: ADMIT Obstetrics & Gynecology; ATTEND Obstetrics & Gynecology
PROC: 10D00Z1 Extraction of Products of Conception, Low, Open Approach (ICD-10-PCS; principal; 2021-09-07 13:36)
DX: O34.211 Maternal care for low transverse scar from previous cesarean delivery (principal); Z37.0 Single live birth; Z3A.37 37 weeks gestation of pregnancy; O99.354 Diseases of the nervous system complicating childbirth; O99.324 Drug use complicating childbirth; F14.23 Cocaine dependence with withdrawal; O99.344 Other mental disorders complicating childbirth; F41.9 Anxiety disorder, unspecified; G40.909 Epilepsy, unspecified, not intractable, without status epilepticus; G47.00 Insomnia, unspecified; J45.909 Unspecified asthma, uncomplicated; O99.52 Diseases of the respiratory system complicating childbirth; Z86.14 Personal history of Methicillin resistant Staphylococcus aureus infection; Z87.440 Personal history of urinary (tract) infections; Z82.3 Family history of stroke
CPT/HCPCS: 59025; 80048; 80306; 81001; 85025; 86762; 86780; 86850; 86900; 86901; 87340; 87390; 88307; 99213

== ENCOUNTER 2021-10-24 17:08 | Emergency (ER) | payer OTHER ==
[2021-10-24 19:18] VITALS: BP 117/67; PULSE 112; RESP 20; TEMP 103.1
[2021-10-24] MEDS ORDERED: ACETAMINOPHEN TAB 500 MG TAB PO STA (19:19)
[2021-10-24] MEDS ORDERED: KETOROLAC 30 MG/ML 1 ML VIAL IM STA (21:15)
[2021-10-24] MEDS ORDERED: ONDANSETRON 4 MG ODT STARTER PACK 2 TAB BTL PO STA (21:15)
--- NOTE | 2021-10-24 22:34 | ED ---
General Adult HPI - General Chief complaint: ENT Stated complaint: bilat ear pain Time Seen by Provider: 10/24/21 20:36 Source: patient Mode of arrival: ambulatory Limitations: no limitations - History of Present Illness Initial comments: 41 year-old female patient presents for evaluation of headache, ear pain, cough, and congestion. States symptoms have been going on for the last couple of days. She was found to have fever in triage, she was unaware. Had not taken any medications for symptoms. She denies chest pain or shortness of breath. She is currently on her period. She reports nausea and vomiting. Denies any hematuria, dysuria, urinary urgency, urinary frequency. Denies abdominal pain. She does report an episode of diarrhea today. - Related Data Previous Rx's Medication Instructions Recorded Ondansetron [Zofran ODT] 4 mg PO Q8HR PRN #20 tab 10/24/21 Allergies Allergy/AdvReac Type Severity Reaction Status Date / Time adhesive tape AdvReac Rash/Hives Verified 10/24/21 22:17 milk AdvReac Abdominal Verified 10/24/21 22:17 Pain Review of Systems ROS Statement: Those systems with pertinent positive or pertinent negative responses have been documented in the HPI. ROS Other: All systems not noted in ROS Statement are negative. Past Medical History Past Medical History: Seizure Disorder Additional Past Medical History / Comment(s): Anxiety, asthma, illicit drug use, pyelonephritis. History of Any Multi-Drug Resistant Organisms: MRSA Date of last positivie culture/infection: 10/16/16 MDRO Source:: THIGH Past Surgical History: No Surgical Hx Reported Additional Past Surgical History / Comment(s): [place] teeth extraction Past Anesthesia/Blood Transfusion Reactions: No Reported Reaction Past Psychological History: Anxiety, Bipolar, Depression Smoking Status: Never smoker Past Alcohol Use History: None Reported Past Drug Use History: None Reported - Past Family History Father History Unknown: Yes Family Medical History: No Reported History Mother Additional Family Medical History / Comment(s): Stroke General Exam Limitations: no limitations General appearance: alert, in no apparent distress, other (A well-developed, thin appearing adult female in no acute distress.) ENT exam: Present: normal exam, normal oropharynx, mucous membranes moist, TM's normal bilaterally Respiratory exam: Present: normal lung sounds bilaterally. Absent: respiratory distress, wheezes, rales, rhonchi, stridor Cardiovascular Exam: Present: normal rhythm, tachycardia, normal heart sounds. Absent: systolic murmur, diastolic murmur, rubs, gallop, clicks GI/Abdominal exam: Present: soft, normal bowel sounds. Absent: distended, tenderness, guarding, rebound, rigid Neurological exam: Present: alert, oriented X3, CN II-XII intact Psychiatric exam: Present: normal affect, normal mood Skin exam: Present: warm, dry, intact, normal color. Absent: rash Course Vital Signs 10/24/21 19:15 Temperature 103.1 F H Pulse Rate 112 H Respiratory 20 Rate Blood Pressure 117/67 O2 Sat by Pulse 95 Oximetry Medical Decision Making - Medical Decision Making 41-year-old female patient presented to the emergency department today for evaluation of bilateral ear pain, headache, nausea, vomiting, cough, congestion. Physical examination did reveal clear equal lung sounds. She was febrile 103F in triage. She did receive acetaminophen. Bilateral tympanic membranes appear normal. She did test negative for covid. Patient is requesting to be discharged. She is instructed to alternate Tylenol Motrin for fever control. She is instructed to follow-up with her primary care physician for recheck in 1- 2 days. Return parameters were discussed in detail. She verbalizes understanding and agrees with this plan. My attending is Dr. Vasquez. - Lab Data Lab Results 10/24/21 Range/Units 21:46 Coronavirus (PCR) Not Detected (Not Detectd) Disposition Clinical Impression: Headache, Viral syndrome Disposition: HOME SELF-CARE Condition: Good Instructions (If sedation given, give patient instructions): Acute Headache (ED), Viral Syndrome (ED) Additional Instructions: Take Tylenol Motrin for pain control. Take medication as needed for nausea. Follow-up through primary care physician for recheck in 1-2 days. We will call with your COVID-19 result. Return any new, worsening, or concerning symptoms Prescriptions: Ondansetron [Zofran ODT] 4 mg PO Q8HR PRN #20 tab PRN Reason: Nausea Is patient prescribed a controlled substance at d/c from ED?: No Referrals: None,Stated [Primary Care Provider] - 1-2 days Time of Disposition: 22:34
== END 2021-10-24 23:01 | disposition home or self-care (01) ==
LOC: EC 17:08
DX: R51.9 Headache, unspecified (principal); B34.9 Viral infection, unspecified; G40.909 Epilepsy, unspecified, not intractable, without status epilepticus; F41.9 Anxiety disorder, unspecified; F31.9 Bipolar disorder, unspecified
CPT/HCPCS: 87635; 99284; 96372; J1885; S0119; 99285

== ENCOUNTER 2024-05-31 18:04 | Emergency (ER) | payer OTHER ==
[2024-05-31 18:55] VITALS: RESP 18
--- NOTE | 2024-05-31 19:18 | ED ---
General Adult HPI - General Chief complaint: Abdominal Pain Stated complaint: Urogenital Time Seen by Provider: 05/31/24 18:56 Source: patient Mode of arrival: ambulatory Limitations: no limitations - History of Present Illness Initial comments: 44-year-old female presenting with chief complaint of. States that she stayed around 24 hours ago. She does not remember removing the tampon. She admits to some cramping. She has some bleeding. No foul discharge. - Related Data Previous Rx's Medication Instructions Recorded Ondansetron [Zofran ODT] 4 mg PO Q8HR PRN #20 tab 10/24/21 Allergies Allergy/AdvReac Type Severity Reaction Status Date / Time adhesive tape AdvReac Rash/Hives Verified 05/31/24 18:54 milk AdvReac Abdominal Verified 05/31/24 18:54 Pain Review of Systems ROS Statement: Those systems with pertinent positive or pertinent negative responses have been documented in the HPI. ROS Other: All systems not noted in ROS Statement are negative. Past Medical History Past Medical History: Seizure Disorder Additional Past Medical History / Comment(s): Anxiety, asthma, illicit drug use, pyelonephritis. History of Any Multi-Drug Resistant Organisms: MRSA Date of last positivie culture/infection: 10/16/16 MDRO Source:: THIGH Past Surgical History: No Surgical Hx Reported Additional Past Surgical History / Comment(s): [place] teeth extraction Past Anesthesia/Blood Transfusion Reactions: No Reported Reaction Past Psychological History: Anxiety, Bipolar, Depression Smoking Status: Never smoker Past Alcohol Use History: None Reported Past Drug Use History: None Reported - Past Family History Father History Unknown: Yes Family Medical History: No Reported History Mother Additional Family Medical History / Comment(s): Stroke General Exam Limitations: no limitations General appearance: alert, in no apparent distress Head exam: Present: atraumatic, normocephalic Eye exam: Present: normal appearance, EOMI Neck exam: Present: normal inspection. Absent: meningismus Respiratory exam: Absent: respiratory distress Cardiovascular Exam: Present: regular rate External exam: Present: normal external exam Speculum exam: Present: normal speculum exam. Absent: foreign body Neurological exam: Present: alert, oriented X3 Psychiatric exam: Present: normal affect, normal mood Skin exam: Present: warm, dry Course Vital Signs 05/31/24 05/31/24 18:53 19:49 Temperature 98 F 98.3 F Pulse Rate 68 73 Respiratory 18 18 Rate Blood Pressure 108/59 114/65 O2 Sat by Pulse 96 99 Oximetry Medical Decision Making - Medical Decision Making Was pt. sent in by a medical professional or institution ([facility] Darden, [employer], urgent care, hospital, or snf...) When possible be specific @ -No Did you speak to anyone other than the patient for history (EMS, parent, family, police, friend...)? What history was obtained from this source @ -No Did you review nursing and triage notes (agree or disagree)? Why? @ -I reviewed and agree with nursing and triage notes Were old charts reviewed (outside hosp., previous admission, EMS record, old EKG, old radiological studies, urgent care reports/EKG's, snf records)? Report findings @ -No old charts were reviewed Differential Diagnosis (chest pain, altered mental status, abdominal pain women, abdominal pain men, vaginal bleeding, weakness, fever, dyspnea, syncope, headache, dizziness, GI bleed, back pain, seizure, CVA, palpatations, mental health, musculoskeletal)? @ -Not applicable EKG interpreted by me (3pts min.). @ -As above X-rays interpreted by me (1pt min.). @ -None done CT interpreted by me (1pt min.). @ -None done U/S interpreted by me (1pt. min.). @ -None done What testing was considered but not performed or refused? (CT, X-rays, U/S, labs)? Why? @ -None What meds were considered but not given or refused? Why? @ -None Did you discuss the management of the patient with other professionals (professionals i.e. [facility] Darden, [employer], lab, RT, psych nurse, social service manager, broach setter, teacher, toxics program officer, case management director)? Give summary @ -No Was smoking cessation discussed for >3mins.? @ -No Was critical care preformed (if so, how long)? @ -No Were there social determinants of health that impacted care today? How? (Homelessness, low income, unemployed, alcoholism, drug addiction, transportation, low edu. Level, literacy, decrease access to med. care, longterm, rehab)? @ -No Was there de-escalation of care discussed even if they declined (Discuss DNR or withdrawal of care, Hospice)? DNR status @ -No What co-morbidities impacted this encounter? (DM, HTN, Smoking, COPD, CAD, Cancer, CVA, ARF, Chemo, Hep., AIDS, mental health diagnosis, sleep apnea, morbid obesity)? @ -None Was patient admitted / discharged? Hospital course, mention meds given and route, prescriptions, significant lab abnormalities, going to OR and other pertinent info. @ -44-year-old female presenting with chief complaint of tampon stuck in her vagina. States that she replaced it 24 hours ago. I performed pelvic exam with the patient's nurse present, I do not see any evidence of a tampon or other foreign body. Normal cervix and no abnormal discharge. I had my colleague Nitza Wong PA-C. Pelvic exam as well as the patient. Requesting "a second opinion". She agreed with that there is no foreign body present on exam. I was present as a servicing manager during her exam. Discharged home. Follow-up with PCP. Report back to ER with any new or worsening symptoms. Discussed return parameters and answered all questions. Patient conveyed verbal understanding and agreed to the plan. I discussed this case in detail with my attending Dr. Salinas Undiagnosed new problem with uncertain prognosis? @ -No Drug Therapy requiring intensive monitoring for toxicity (Heparin, Nitro, Insulin, Cardizem)? @ -No Were any procedures done? @ -No Diagnosis/symptom? @ -Normal vaginal exam Acute, or Chronic, or Acute on Chronic? @ -Acute Uncomplicated (without systemic symptoms) or Complicated (systemic symptoms)? @ -Uncomplicated Side effects of treatment? @ -No Exacerbation, Progression, or Severe Exacerbation? @ -No Poses a threat to life or bodily function? How? (Chest pain, [place], [place], pneumonia, PE, COPD, DKA, ARF, appy, cholecystitis, CVA, Diverticulitis, Homicidal, Suicidal, threat to staff... and all critical care pts) @ -No Disposition Clinical Impression: Normal vaginal exam Disposition: HOME SELF-CARE Condition: Good Additional Instructions: Follow-up with PCP. Report back to ER with any new or worsening symptoms. Is patient prescribed a controlled substance at d/c from ED?: No Referrals: None,Stated [Primary Care Provider] - 1-2 days Time of Disposition: 19:17
[2024-05-31 19:50] VITALS: BP 114/65; PULSE 73; TEMP 98.3
== END 2024-05-31 19:51 | disposition home or self-care (01) ==
LOC: EC 18:04
DX: Z01.419 Encounter for gynecological examination (general) (routine) without abnormal findings (principal); Z91.09 Other allergy status, other than to drugs and biological substances; Z91.011 Allergy to milk products
CPT/HCPCS: 99283